=== PATIENT | female | born 1980 | race Hispanic/Latino ===

== ENCOUNTER 2019-01-05 21:16 | Emergency (ER) | payer OTHER ==
[2019-01-05] MEDS ORDERED: DEXAMETHASONE SOD PHOSPHATE 10MG/ML 1ML VIAL ONE (22:07)
[2019-01-05] MEDS ORDERED: KETOROLAC TROMETHAMINE 60 MG/2 ML VIAL ONE (22:08)
== END 2019-01-05 23:26 | disposition home or self-care (01) ==
LOC: EDH 21:16
DX: M54.41 Lumbago with sciatica, right side (principal)
CPT/HCPCS: 96372 ×2; 99283; J1100; J1885

== ENCOUNTER 2019-07-08 18:01 | Emergency (ER) | payer OTHER ==
[2019-07-08 18:19] LABS: BASOPHILS % (AUTO) 0.5 % (0.0-5.0); EOSINOPHILS % (AUTO) 2.8 % (0.0-8.0); HEMATOCRIT 39.4 % (36-48); LYMPHOCYTES % (AUTO) 43.4 % (21.0-51.0); MEAN CORPUSCULAR HGB CONC 32.8 g/dL (32.0-36.0); MEAN CORPUSCULAR VOLUME 79.2 fL (79-99); MONOCYTES % (AUTO) 10.4 % (3.0-13.0); NEUTROPHILS % (AUTO) 42.9 % (40.0-77.0); PLATELET COUNT (AUTO) 320 K/uL (130-400); RED BLOOD CELL COUNT(AUTO) 4.98 MIL/uL (4.00-5.50); RED CELL DISTRIBUTION WIDTH 14.5 % (11.0-15.5); WHITE BLOOD COUNT (AUTO) 8.6 K/uL (4.8-10.8)
[2019-07-08] MEDS ORDERED: ASPIRIN 325 MG TABLET ONE (18:20)
[2019-07-08 18:29] LABS: CREATININE 0.8 mg/dL (0.5-1.5); INR 1.03 (0.85-1.15); PARTIAL THROMBOPLASTIN TIME 25.7 SEC (26.3-35.5); POTASSIUM 3.5 mmol/L (3.5-5.1); PROTHROMBIN TIME 10.8 SEC (9.6-11.6)
[2019-07-08 18:33] LABS: ALBUMIN 3.7 g/dL (3.5-5.0); BILIRUBIN,TOTAL 1.4 mg/dL (0.2-1.0); TOTAL PROTEIN, SERUM 7.1 g/dL (6.0-8.3)
== END 2019-07-08 20:33 | disposition home or self-care (01) ==
LOC: EDH 18:01
DX: R07.89 Other chest pain (principal); R61 Generalized hyperhidrosis; R53.1 Weakness; R20.2 Paresthesia of skin
CPT/HCPCS: 36415; 71045; 80053; 84484; 85025; 85610; 85730; 93005

== ENCOUNTER 2019-12-14 11:20 | Emergency (ER) | payer SELFPAY ==
[2019-12-14 12:47] LABS: RAPID GROUP A STREP NEGATIVE (NEGATIVE)
[2019-12-14] MEDS ORDERED: IBUPROFEN 600 MG TABLET ONE (13:02)
== END 2019-12-14 13:59 | disposition home or self-care (01) ==
LOC: EDH 11:20
DX: J20.9 Acute bronchitis, unspecified (principal)
CPT/HCPCS: 71046; 81025; 87804; 87880

== ENCOUNTER 2022-10-17 18:40 | Emergency (ER) | payer OTHER ==
[~2022-10-17] VITALS: Ht 160 cm; Wt 83.5 kg
[2022-10-17 21:04] VITALS: BP 160/86
[2022-10-17] MEDS ORDERED: IBUPROFEN 600 MG TABLET PO ONE (22:00)
[2022-10-17] MEDS ORDERED: ACETAMINOPHEN 325 MG TAB PO ONE (22:00)
[2022-10-17] MEDS ORDERED: NIRM1TAB PO (23:37)
[2022-10-17] MEDS ORDERED: IBUP-2070 PO (23:37)
[2022-10-17] MEDS ORDERED: BROM237S PO (23:37)
[2022-10-17] MEDS ORDERED: PSEU120T62 PO (23:37)
== END 2022-10-17 23:49 | disposition home or self-care (01) ==
LOC: EDH 18:40
DX: U07.1 COVID-19 (principal); Z79.1 Long term (current) use of non-steroidal anti-inflammatories (NSAID)
CPT/HCPCS: 99283; 87635; 87880; 87804 ×2; C9803